=== PATIENT | female | born 1995 | race Caucasian/White ===

== ENCOUNTER 2018-06-27 19:34 | Emergency (ER) | payer MEDICAID ==
[2018-06-27 21:39] LABS: URINE PH (Dip) POC 8.5 (5.0-8.5)
[2018-06-27 21:39] LABS: URINE BLOOD (Dip) POC Negative (NEGATIVE); URINE GLUCOSE (Dip) POC Negative (NEGATIVE); URINE KETONES (Dip) POC Negative (NEGATIVE); URINE LEUKOCYTE EST (Dip) POC Trace (NEGATIVE); URINE NITRITE (Dip) POC Negative (NEGATIVE); URINE TOTAL PROTEIN POC Negative (NEGATIVE)
== END 2018-06-27 23:42 | disposition home or self-care (01) ==
LOC: FTE 19:34
DX: N89.8 Other specified noninflammatory disorders of vagina (principal); H66.91 Otitis media, unspecified, right ear; J02.9 Acute pharyngitis, unspecified; R10.30 Lower abdominal pain, unspecified
CPT/HCPCS: 81003; 84703; 87086; 87210; 87591; 99284